=== PATIENT | female | born 1935 | race African-American/Black ===

== ENCOUNTER 2017-01-10 06:44 | Emergency (ER) | payer MEDICARE, OTHER ==
[~2017-01-10] VITALS: Ht 152.4 cm; Wt 68.0 kg
[~2017-01-10 06:44] MED LIST: ATORVASTATIN; HYDROCHLOROTHIAZIDE
[2017-01-10] MEDS ORDERED: SODIUM CHLORIDE 0.9% 1,000 ML IV ONE (07:26)
[2017-01-10 07:51] LABS: BASOPHILS % 1.1 % (0.0-2.0); EOSINOPHILS % 6.2 % (0.0-5.0); HEMATOCRIT. 35.7 % (36.0-48.0); HEMOGLOBIN. 12.2 g/dL (12.0-16.0); LYMPHOCYTES % 23.9 % (20.0-50.0); MEAN CORPUSCULAR HEMOGLOBIN 30.6 pg (28.0-32.0); MONOCYTES % 11.3 % (2.0-8.0); NEUTROPHILS % 57.5 % (40.0-76.0); PLATELET 199 x1000/uL (130-400); RED BLOOD CELL COUNT 3.97 mill/uL (4.2-5.4); RED CELL DISTRIBUTION WIDTH 13.6 % (11.6-14.6)
[2017-01-10 07:59] LABS: CHLORIDE 100 mEq/L (98-107)
[2017-01-10 08:07] LABS: CARBON DIOXIDE 32 mEq/L (21-32); CREATINE KINASE 82 IU/L (26-192)
[2017-01-10 08:56] LABS: CLARITY URINE CLEAR (CLEAR); COLOR URINE YELLOW (YELLOW); GLUCOSE URINE NEGATIVE (NEGATIVE); KETONES URINE NEGATIVE (NEGATIVE); LEUKOCYTE ESTERASE URINE 1+ (NEGATIVE); NITRITE URINE NEGATIVE (NEGATIVE); OCCULT BLOOD URINE 2+ (NEGATIVE); PROTEIN URINE NEGATIVE (NEGATIVE); SPECIFIC GRAVITY URINE 1.008 (1.005-1.030); UROBILINOGEN URINE 0.2 E.U./dL (0.2-1.0)
[2017-01-10 10:40] VITALS: BP 155/81
== END 2017-01-10 11:02 | disposition home or self-care (01) ==
LOC: ER 06:54
DX: E86.0 Dehydration (principal); E78.00 Pure hypercholesterolemia, unspecified; Z98.890 Other specified postprocedural states; Z79.4 Long term (current) use of insulin
CPT/HCPCS: 36415; 80048; 81001; 82550; 85025; 96360; 96361; 99285; J7030

== ENCOUNTER 2020-09-21 01:58 | Emergency (ER) | payer MEDICARE, OTHER ==
[~2020-09-21] VITALS: Ht 152.4 cm; Wt 46.0 kg
[2020-09-21] MEDS ORDERED: SODIUM CHLORIDE 0.9% 1000ML BAG (SEPSIS BOLUS) IV ONE (02:45)
[2020-09-21] MEDS ORDERED: PIPERACILLIN/TAZ 3.375G PREMIX 50 ML IV ONE (02:45)
[2020-09-21 03:20] LABS: BASOPHILS % 0.5 % (0.0-2.0); EOSINOPHILS % 2.4 % (0.0-5.0); HEMATOCRIT. 36.7 % (36.0-48.0); HEMOGLOBIN. 12.1 g/dL (12.0-16.0); LYMPHOCYTES % 8.8 % (20.0-50.0); MEAN CORPUSCULAR HEMOGLOBIN 29.2 pg (28.0-32.0); MEAN CORPUSCULAR VOLUME 88.6 fL (81.0-99.0); MEAN PLATELET VOLUME 10.1 fl (7.4-10.4); MONOCYTES % 12.2 % (2.0-8.0); NEUTROPHILS % 76.1 % (40.0-76.0); PLATELET 265 x1000/uL (130-400); RED BLOOD CELL COUNT 4.15 mill/uL (4.2-5.4); RED CELL DISTRIBUTION WIDTH 14.9 % (11.6-14.6)
[2020-09-21 03:34] LABS: D-DIMER 2.32 mg/L FEU (<0.50); INR 1.2; PROTHROMBIN TIME 12.8 sec (9.6-11.0)
[2020-09-21 03:44] LABS: CHLORIDE 93 mEq/L (98-107)
[2020-09-21 05:08] LABS: CLARITY URINE CLEAR (CLEAR); COLOR URINE YELLOW (YELLOW); KETONES URINE NEGATIVE (NEGATIVE); LEUKOCYTE ESTERASE URINE 1+ (NEGATIVE); NITRITE URINE NEGATIVE (NEGATIVE); OCCULT BLOOD URINE NEGATIVE (NEGATIVE); PROTEIN URINE NEGATIVE (NEGATIVE); SPECIFIC GRAVITY URINE 1.016 (1.005-1.030); UROBILINOGEN URINE 0.2 E.U./dL (0.2-1.0)
[2020-09-21 07:18] VITALS: BP 121/71
[2020-09-21] MEDS ORDERED: ACETAMINOPHEN 325MG TABLET PO ONE (07:45)
== END 2020-09-21 08:42 | disposition short-term general hospital (02) ==
LOC: ER 01:58 → CANBEDREQ 08:05 → ER 08:42
DX: R42 Dizziness and giddiness (principal); K59.00 Constipation, unspecified; E11.9 Type 2 diabetes mellitus without complications; E78.00 Pure hypercholesterolemia, unspecified; I10 Essential (primary) hypertension; I25.2 Old myocardial infarction
CPT/HCPCS: 36415; 71045; 80053; 81003; 83605; 83880; 84145; 84484; 85025; 85379; 85610; 87040; 87086; 93005; 96361; 96365; 99285; J2543; J7030

== ENCOUNTER 2024-03-07 11:14 | Inpatient (IN) | payer MEDICARE, OTHER ==
[~2024-03-07] VITALS: Ht 162.6 cm; Wt 68.0 kg
[2024-03-07] MEDS: SODIUM CHLORIDE 0.9% 1,000 ML IV ONE (11:51)
[2024-03-07] MEDS: PIPERACILLIN/TAZO 3.375G/50ML 50 ML IV ONE (11:54)
[2024-03-07 12:03] LABS: BASOPHILS % 0.8 % (0.0-2.0); EOSINOPHILS % 5.3 % (0.0-5.0); HEMATOCRIT. 36.5 % (36.0-48.0); HEMOGLOBIN. 11.9 g/dL (12.0-16.0); LYMPHOCYTES % 13.3 % (20.0-50.0); MEAN CORPUSCULAR HGB CONC 32.6 g/dL (31.0-37.0); MEAN CORPUSCULAR VOLUME 88.9 fL (81.0-99.0); MEAN PLATELET VOLUME 8.7 fl (7.4-10.4); MONOCYTES % 12.4 % (2.0-8.0); NEUTROPHILS % 68.2 % (40.0-76.0); PLATELET 274 x1000/uL (130-400); RED BLOOD CELL COUNT 4.11 mill/uL (4.2-5.4); WHITE BLOOD COUNT 6.1 x1000/uL (4.5-11.0)
[2024-03-07 12:10] LABS: CHLORIDE 99 mEq/L (98-107); POTASSIUM 3.5 mEq/L (3.5-5.1); SODIUM 140 mEq/L (136-145)
[2024-03-07 12:11] LABS: CARBON DIOXIDE 38 mEq/L (21-32)
[2024-03-07 12:12] LABS: CALCIUM 10.4 mg/dL (8.7-10.4)
[2024-03-07] MEDS: VANCOMYCIN 1G PREMIX 200 ML IV ONE (12:14)
[2024-03-07 12:15] LABS: CLARITY URINE CLEAR (CLEAR); COLOR URINE YELLOW (YELLOW); GLUCOSE URINE NEGATIVE (NEGATIVE); KETONES URINE NEGATIVE (NEGATIVE); LEUKOCYTE ESTERASE URINE NEGATIVE (NEGATIVE); NITRITE URINE NEGATIVE (NEGATIVE); OCCULT BLOOD URINE TRACE (NEGATIVE); PROTEIN URINE NEGATIVE (NEGATIVE); SPECIFIC GRAVITY URINE 1.006 (1.005-1.030); UROBILINOGEN URINE 0.2 E.U./dL (0.2-1.0)
[2024-03-07 12:16] LABS: CREATININE 0.5 mg/dL (0.6-1.0); GLUCOSE 202 mg/dL (70-105)
[2024-03-07 12:17] LABS: TROPONIN I HIGH SENSITIVITY 6 ng/L (3.0-34); UREA NITROGEN BLOOD 9 mg/dL (9-23)
[2024-03-07 12:22] LABS: INR 1.2; PROTHROMBIN TIME 13.5 sec (9.6-11.0)
[2024-03-07 12:37] LABS: SQUAMOUS EPITHELIAL CELL URINE 2+ /lpf (RARE/1+)
[2024-03-07 12:38] LABS: CALCIUM OXALATE CRYSTALS URINE 1+ /lpf
[2024-03-07 12:43] LABS: BACTERIA URINE NONE SEEN; WBC URINE 0-2 /hpf (0-2); YEAST URINE 1+
[2024-03-07] MEDS: IPRATROPIUM BROMIDE (0.02%) 0.5MG/2.5ML NEB HHN STA (13:14)
[2024-03-07] MEDS: ALBUTEROL (0.083%) 2.5MG/3ML NEB HHN STA (13:14)
[2024-03-07 14:14] LABS: BG BASE EXCESS 11.5 mmol/L (-2.0-3.0); BG CARBOXYHEMOGLOBIN 0.8 % (0.5-1.5); BG DEOXYHEMOGLOBIN 13.2 % (0.0-5.0); BG FRACTION INSPIRED OXYGEN 21; BG HCO3 ACT 37.4 mmol/L (21.0-28.0); BG METHEMOGLOBIN 0.3 % (0.5-1.5); BG OXYGEN SATURATION 86.7 % (94.0-98.0); BG OXYHEMOGLOBIN 85.7 % (94.0-98.0); BG PCO2 54.6 mmHg (32.0-45.0); BG PH 7.454 (7.350-7.450); BG PO2 48.9 mmHg (83.0-108.0); BG SAMPLE SITE RIGHT RADIAL; BG TOTAL HEMOGLOBIN 13.1 g/dL (12.0-16.0); BG VENT MODE ROOM AIR
[2024-03-07] MEDS: METHYLPREDNISOLONE SOD SUCC 125MG/2ML (ACT-O-VIAL) IV NR (19:34)
[2024-03-07] MEDS ORDERED: ONDANSETRON HCL 4MG/2ML INJ IV PRN (21:15)
[2024-03-07] MEDS ORDERED: MAGNESIUM/ALUMINUM HYDROXIDE/SIMETHICONE 30ML UDC PO PRN (21:15)
[2024-03-07] MEDS ORDERED: DOCUSATE SODIUM 100MG CAPSULE PO PRN (21:15)
[2024-03-07] MEDS ORDERED: IPRATROPIUM/ALBUTEROL 0.5-3(2.5)MG/3ML NEB HHN PRN (21:15)
[2024-03-07] MEDS ORDERED: ACETAMINOPHEN 325MG TABLET PO PRN ×2 (21:15)
[2024-03-07] MEDS ORDERED: GUAIFENESIN 200MG/10ML SUGAR FREE UDC PO PRN (21:15)
[2024-03-07 22:00] VITALS: BP 161/80; PULSE 93; RESP 20; TEMP 36.418
[2024-03-07] MEDS ORDERED: ATOR-2 PO (22:09)
[2024-03-07] MEDS ORDERED: BENZ100C86 PO (22:09)
[2024-03-07] MEDS ORDERED: AMLO5TAB88 PO (22:09)
[2024-03-07] MEDS ORDERED: DEXTROSE 50% WATER 50ML SYRINGE IV PRN (22:15)
[2024-03-07] MEDS: CEFTRIAXONE 1GM/50ML 50 ML IV SCH (23:59)
[2024-03-07] MEDS: AZITHROMYCIN 500MG/250ML 250 ML IV SCH (23:59)
[2024-03-07] MEDS: ENOXAPARIN 30MG/0.3ML SYR SUBCUT SCH (23:59)
[2024-03-08] VITALS: BP 139/64; PULSE 84; RESP 20; TEMP 36.00288; O2SAT 99
[2024-03-08] MEDS: IPRATROPIUM/ALBUTEROL 0.5-3(2.5)MG/3ML NEB HHN SCH
[2024-03-08 01:15] LABS: CREATINE KINASE 63 IU/L (34-145)
[2024-03-08] MEDS: VANCOMYCIN 500MG/100ML IV SCH (01:47)
[2024-03-08 04:00] VITALS: BP 179/82; PULSE 87; RESP 18; TEMP 35.72508; O2SAT 98
[2024-03-08] MEDS: CLONIDINE 0.1MG TABLET PO PRN (05:56)
[2024-03-08] MEDS: INSULIN LISPRO 100 UNITS/ML SUBCUT SCH ×2 (06:44→12:40)
[2024-03-08] MEDS: BLOOD SUGAR DIAGNOSTIC STRIP TEST SCH (06:44)
[2024-03-08 06:53] LABS: BASOPHILS % 0.4 % (0.0-2.0); EOSINOPHILS % 0.1 % (0.0-5.0); HEMATOCRIT. 37.1 % (36.0-48.0); HEMOGLOBIN. 12.3 g/dL (12.0-16.0); LYMPHOCYTES % 9.9 % (20.0-50.0); MEAN CORPUSCULAR HEMOGLOBIN 29.5 pg (28.0-32.0); MEAN CORPUSCULAR HGB CONC 33.1 g/dL (31.0-37.0); MEAN CORPUSCULAR VOLUME 89.2 fL (81.0-99.0); MEAN PLATELET VOLUME 9.1 fl (7.4-10.4); NEUTROPHILS % 88.6 % (40.0-76.0); PLATELET 276 x1000/uL (130-400); RED BLOOD CELL COUNT 4.15 mill/uL (4.2-5.4); RED CELL DISTRIBUTION WIDTH 13.4 % (11.6-14.6); WHITE BLOOD COUNT 5.6 x1000/uL (4.5-11.0)
[2024-03-08 06:58] LABS: CREATINE KINASE 54 IU/L (34-145)
[2024-03-08 07:23] LABS: CHLORIDE 97 mEq/L (98-107); POTASSIUM 3.9 mEq/L (3.5-5.1); SODIUM 137 mEq/L (136-145)
[2024-03-08 07:24] LABS: CARBON DIOXIDE 32 mEq/L (21-32)
[2024-03-08 07:29] LABS: CREATININE 0.5 mg/dL (0.6-1.0); GLUCOSE 281 mg/dL (70-105); TRIGLYCERIDE 51 mg/dL (0-150); UREA NITROGEN BLOOD 8 mg/dL (9-23)
[2024-03-08 07:30] LABS: LDL CHOLESTEROL 45 mg/dL (5-100); T4 FREE 1.34 ng/dL (0.89-1.76); THYROID STIMULATING HORMONE 1.07 uIU/mL (0.55-4.78)
[2024-03-08 07:31] LABS: CHOLESTEROL 104 mg/dL (<200); HDL CHOLESTEROL 41 mg/dL (>65)
[2024-03-08 08:00] VITALS: BP 120/72; PULSE 71; RESP 18; TEMP 36.3918; O2SAT 99
[2024-03-08 09:18] VITALS: PULSE 74; RESP 16; O2SAT 95
[2024-03-08] MEDS: BENZONATATE 100MG CAPSULE PO SCH (09:56)
[2024-03-08] MEDS: METHYLPREDNISOLONE SOD SUCC 40MG/ML (ACT-O-VIAL) IV SCH (09:56)
[2024-03-08] MEDS: AMLODIPINE 5MG TABLET PO SCH (09:57)
[2024-03-08] MEDS: INSULIN GLARGINE 100 UNITS/ML SUBCUT SCH (10:37)
[2024-03-08 12:00] VITALS: BP 119/63; PULSE 81; RESP 17; TEMP 35.78064; O2SAT 99
[2024-03-08 13:29] VITALS: BP 119/63; PULSE 81; TEMP 96.9; O2SAT 99
[2024-03-08] MEDS ORDERED: AZITHROMYCIN 500 MG TABLET PO SCH (21:00)
[2024-03-08] MEDS ORDERED: ATORVASTATIN CALCIUM 40MG TABLET PO SCH (21:00)
== END 2024-03-08 15:40 | disposition short-term general hospital (02) | DRG 141 ==
LOC: ER 11:14 → 8WST 13:18 → EDBEDREQTM 13:22 → EDBEDREQ 13:22
PROVIDERS: ADMIT Internal Medicine; ATTEND Internal Medicine
DX: J45.901 Unspecified asthma with (acute) exacerbation (principal); J96.01 Acute respiratory failure with hypoxia; J18.9 Pneumonia, unspecified organism; E11.9 Type 2 diabetes mellitus without complications; D64.9 Anemia, unspecified; E78.00 Pure hypercholesterolemia, unspecified; I10 Essential (primary) hypertension; Z66 Do not resuscitate; J96.02 Acute respiratory failure with hypercapnia; Z20.822 Contact with and (suspected) exposure to COVID-19; Q66.89 Other specified congenital deformities of feet; M41.9 Scoliosis, unspecified; Z74.01 Bed confinement status; Z79.84 Long term (current) use of oral hypoglycemic drugs; Z79.899 Other long term (current) drug therapy
CPT/HCPCS: 36415; 36600; 71045; 80048; 80061; 81003; 82375; 82550; 82805; 82962; 83036; 83605; 84145; 84439; 84443; 84484; 85025; 87426; 93005; 94640; 99291; J0456; J0696; J1650; J1815; J2543; J2919; J2920; J3370; J7030